=== PATIENT | male | born 1995 | race Caucasian/White ===

== ENCOUNTER 2016-10-29 18:33 | Emergency (ER) | payer BC ==
[~2016-10-29] VITALS: Ht 180.3 cm; Wt 81.2 kg
[2016-10-29 18:42] VITALS: TEMP 36.8; Ht 180.3 cm; Wt 81.2 kg
[2016-10-29] MEDS ORDERED: SODIUM CHLORIDE 0.9% 1000ML 1,000 ML IV STA (19:14)
[2016-10-29] MEDS ORDERED: PROCHLORPERAZINE 5 MG/ML 2 ML VIAL IV STA (19:14)
[2016-10-29] MEDS ORDERED: DiphenhydrAMINE HCL 50 MG/ML VIAL IV STA (19:14)
[2016-10-29] MEDS ORDERED: IBUP-1050 PO (19:28)
[2016-10-29] MEDS ORDERED: PSEU30TA20 PO (19:29)
[2016-10-29 19:54] LABS: BASO % 0.5 %; BASO ABS # 0.03 K/uL (0-0.2); COMPLETE YES; EOS % 2.7 %; HEMATOCRIT 39.1 % (42-52); IG% 0.2 %; LYMPH % 25.4 %; LYMPH ABS # 1.42 K/uL (1.2-3.4); MEAN CELL VOLUME 84.4 fL (80-100); MEAN CORPUSCULAR HGB CONC 35.5 g/dl (32-36); MEAN PLATELET VOLUME 10.4 fL (7.4-10.4); MONO % 14.5 %; NEUT % 56.7 %; PLATELET COUNT 192 K/uL (130-400); RED BLOOD COUNT 4.63 M/uL (4.7-6.1); WHITE BLOOD COUNT 5.59 K/uL (4.8-10.8)
[2016-10-29 20:01] LABS: INR 1.1 (0.9-1.1); PARTIAL THROMBOPLASTIN RATIO 1.2; PROTHROMBIN TIME (PATIENT) 11.3 SECONDS (9.0-12.0)
--- NOTE | 2016-10-29 20:06 | DIAGNOSTIC IMAGING REPORT ---
HEAD CT NONCONTRAST CT DOSE: 580.48 mGy.cm HISTORY: right facial numbness/right DEY eval for bleed/cva TECHNIQUE: Multiaxial CT images of the head were performed without the use of intravenous contrast. Automated exposure control was utilized for this study. Comparison: Head CT Findings: The paranasal sinuses and mastoid air cells are clear. The calvarium and skull base are intact. The ventricles and sulci are within normal limits. There is no mass, hematoma, midline shift, or acute infarct. Impression: No acute intracranial abnormality. Electronically signed by: Edward Mora M.D. 10/29/2016 8:04 PM Dictated Date/Time: 10/29/2016 8:00 PM
[2016-10-29 20:18] LABS: BUN/CREATININE RATIO 13.6 (10-20); CALCIUM 8.6 mg/dl (8.5-10.1); POTASSIUM 3.8 mmol/L (3.5-5.1)
[2016-10-29 20:28] LABS: THYROID STIMULATING HORMONE 0.663 uIu/ml (0.300-4.500)
[2016-10-29 20:59] LABS: LYME DISEASE AB IGG NEG (NEG); LYME DISEASE AB IGM NEG (NEG)
[2016-10-29 21:04] VITALS: BP 139/64; PULSE 60; O2SAT 98
--- NOTE | 2016-10-30 00:54 | EMERGENCY ROOM VISIT NOTE ---
History Report prepared by Phu: Mary Morales Under the Supervision of: Dr. Rick Huerta M.D. First contact with patient: 18:56 Chief Complaint: ILLNESS Stated Complaint: HEAD ISSUE,DIZZY,FACIAL NUMBNESS History of Present Illness The patient is a 21 year old male who presents to the Emergency Room with complaints of worsening headache and facial numbness which has been ongoing for up to a year. The patient reports that he is "not feeling right today". He admits to drinking alcohol last night and estimates that he had about 8 drinks. He did feel hungover this morning. He reports that he took an Ibuprofen at 1200 and started feeling "weird" about 1 hour later. He states that he is experiencing a headache on the right side of his head along with facial numbness on the right side of his lower face. He states that he has also been feeling dizzy, off balance, and has been experiencing some slowness in his thinking. The patient states that his headache today feels like the same headache that he has had for the past year. He also states that he has had this numbness to his lower face for the past year as well. He also states that today he has been smelling blood. He denies epistaxis. He is also feeling nauseous, but believes that this might be due to his drinking last night. He states that he regularly gets MRIs every 6 months. He reports that the last MRI was normal and it was performed when he was having his headaches and numbness, although he never mentioned these symptoms to his doctor. He denies any vomiting , diarrhea, abdominal pain, fever, sinus problems, epistaxis, recent tick bites , rashes, and numbness or weakness in his arms or legs. He reports that there is no family history of migraine headaches. The patient rates his current pain as a 3/10. Source of History: patient Onset: [employer] Position: head Symptom Intensity: 3/10 Quality: other (throbbing) Timing: constant Modifying Factors (Worsening): other (alcohol last night) Associated Symptoms: + nausea, + numbness (right facial), No abdominal pain , No diarrhea, No fevers, No rash, No vomiting Note: Pt notes dizziness, feeling off-balance, and problems with speech. Pt also denies sinus problems, epistaxis, and recent tick bites. Review of Systems See HPI for pertinent positives & negatives. A total of 10 systems reviewed and were otherwise negative. Past Medical & Surgical Medical Problems: (1) Cyst of brain (2) Hydrocephalus Surgical Problems: (1) History of tonsillectomy and adenoidectomy (2) ventriculostomy Family History Diabetes mellitus Kidney disease Kidney stones Social History Smoking Status: Current Some Day Smoker Alcohol Use: occasionally Marital Status: single Housing Status: lives with roommate Occupation Status: [employer] student Current/Historical Medications Scheduled Ibuprofen (Advil), 200-600 MG PO Q4H Pseudoephedrine (Sudafed), 30 MG PO DIRECTED Allergies Coded Allergies: Amoxicillin (Verified Allergy, Unknown, Rash, 10/29/16) Clavulanic Acid (Unverified Allergy, Unknown, RASH, 10/29/16) Physical Exam Vital Signs Date Time Temp Pulse Resp B/P Pulse Ox O2 Delivery O2 Flow Rate FiO2 10/29/16 21:04 60 20 139/64 98 Room Air 10/29/16 20:04 90 16 153/72 74 158/70 73 147/80 10/29/16 18:42 36.8 67 18 168/102 99 Room Air Physical Exam Constitutional: Vital signs reviewed. Eyes: Pupils are equal round reactive to light. Conjunctiva are noninjected. No papilledema bilaterally. ENT: Pharynx is clear without erythema or exudate. Mucous membranes are moist. Neck supple without meningeal signs. Respiratory: Clear to auscultation bilaterally. Breath sounds are equal bilaterally. Cardiovascular: Regular rate and rhythm. No rubs or gallops. GI: Soft, nondistended and nontender. Bowel sounds are present. Musculoskeletal: No peripheral edema. Integumentary: No cyanosis. Neurological: The patient is awake and alert. Cranial nerves II-XII are intact , except slight subjective diminished sensation to the right V3. Motor is 5 out of 5 all extremities. Sensation is intact to light touch all extremities. Normal speech. Normal gait. No pronator drift. No dysdiadochokinesis. No limb ataxia. Psychiatric: Slightly anxious appearing. Medical Decision & Procedures ER Provider Diagnostic Interpretation: Radiology results as stated below per my review and the radiologist's interpretation: HEAD CT NONCONTRAST CT DOSE: 580.48 mGy.cm HISTORY: right facial numbness/right DEY eval for bleed/cva TECHNIQUE: Multiaxial CT images of the head were performed without the use of intravenous contrast. Automated exposure control was utilized for this study. Comparison: Head CT Findings: The paranasal sinuses and mastoid air cells are clear. The calvarium and skull base are intact. The ventricles and sulci are within normal limits. There is no mass, hematoma, midline shift, or acute infarct. Impression: No acute intracranial abnormality. Electronically signed by: Edward Mora M.D. 10/29/2016 8:04 PM Laboratory Results 10/29/16 19:40 Red Blood Count 4.63, Mean Corpuscular Volume 84.4, Mean Corpuscular Hemoglobin 30.0, Mean Corpuscular Hemoglobin Concent 35.5, Mean Platelet Volume 10.4, Neutrophils (%) (Auto) 56.7, Lymphocytes (%) (Auto) 25.4, Monocytes (%) (Auto) 14.5, Eosinophils (%) (Auto) 2.7, Basophils (%) (Auto) 0.5, Neutrophils # (Auto ) 3.17, Lymphocytes # (Auto) 1.42, Monocytes # (Auto) 0.81, Eosinophils # (Auto ) 0.15, Basophils # (Auto) 0.03 10/29/16 19:40 Test 10/29/16 19:40 White Blood Count 5.59 K/uL (4.8-10.8) Red Blood Count 4.63 M/uL (4.7-6.1) Hemoglobin 13.9 g/dL (14.0-18.0) Hematocrit 39.1 % (42-52) Mean Corpuscular Volume 84.4 fL (80-100) Mean Corpuscular Hemoglobin 30.0 pg (25-34) Mean Corpuscular Hemoglobin Concent 35.5 g/dl (32-36) Platelet Count 192 K/uL (130-400) Mean Platelet Volume 10.4 fL (7.4-10.4) Neutrophils (%) (Auto) 56.7 % Lymphocytes (%) (Auto) 25.4 % Monocytes (%) (Auto) 14.5 % Eosinophils (%) (Auto) 2.7 % Basophils (%) (Auto) 0.5 % Neutrophils # (Auto) 3.17 K/uL (1.4-6.5) Lymphocytes # (Auto) 1.42 K/uL (1.2-3.4) Monocytes # (Auto) 0.81 K/uL (0.11-0.59) Eosinophils # (Auto) 0.15 K/uL (0-0.5) Basophils # (Auto) 0.03 K/uL (0-0.2) RDW Standard Deviation 39.3 fL (36.4-46.3) RDW Coefficient of Variation 12.9 % (11.5-14.5) Immature Granulocyte % (Auto) 0.2 % Immature Granulocyte # (Auto) 0.01 K/uL (0.00-0.02) Prothrombin Time 11.3 SECONDS (9.0-12.0) Prothromb Time International Ratio 1.1 (0.9-1.1) Activated Partial Thromboplast Time 31.8 SECONDS (21.0-31.0) Partial Thromboplastin Ratio 1.2 Anion Gap 9.0 mmol/L (3-11) Est Creatinine Clear Calc Drug Dose 124.4 ml/min Estimated GFR () 124.1 Estimated GFR (Non- 107.1 BUN/Creatinine Ratio 13.6 (10-20) Calcium Level 8.6 mg/dl (8.5-10.1) Total Bilirubin 0.4 mg/dl (0.2-1) Direct Bilirubin 0.2 mg/dl (0-0.2) Aspartate Amino Transf (AST/SGOT) 19 U/L (15-37) Alanine Aminotransferase (ALT/SGPT) 27 U/L (12-78) Alkaline Phosphatase 70 U/L (45-117) Total Protein 7.4 gm/dl (6.4-8.2) Albumin 4.0 gm/dl (3.4-5.0) Lipase 113 U/L (73-393) Thyroid Stimulating Hormone (TSH) 0.663 uIu/ml (0.300-4.500) Free Thyroxine 1.07 ng/dl (0.80-1.60) Lyme Disease IgG Antibody NEG (NEG) Lyme Disease IgM Antibody NEG (NEG) Laboratory results as reviewed by me. Medications Administered Medications (Trade) Dose Ordered Sig/Nate Route Start Time Stop Time Status Last Admin Dose Admin Sodium Chloride (Nss 1000ml) 1,000 ml @ 999 mls/hr Q1H1M STAT IV 10/29/16 19:14 10/29/16 20:14 DC 10/29/16 19:42 999 MLS/HR Prochlorperazine Edisylate (Compazine Inj) 10 mg NOW STAT IV 10/29/16 19:14 10/29/16 19:17 DC 10/29/16 19:43 10 MG Diphenhydramine HCl (Benadryl Inj) 50 mg NOW STAT IV 10/29/16 19:14 10/29/16 19:17 DC 10/29/16 19:42 50 MG ED Course 1904: The patient was evaluated in room B9. A complete history and physical exam was performed. 1913: NSS 1000 ml @ 999 mls/hr, Compazine Inj 10 mg IV, Benadryl Inj 50 mg IV. 2029: I reevaluated the patient. His headache is better and the numbness is gone. 2101: I reevaluated the patient. He is now asymptomatic. He will follow up with neurology. I discussed his results and discharge instructions with him and he verbalized complete understanding and agreement. Medical Decision This is a 21-year-old male who presents with feeling headache and facial numbness which she has had intermittently for about a year. Differential diagnosis includes migraine headache, stress headache, intracranial mass, intracranial hemorrhage, hangover. I did perform a limited focused review of portions of the patient's old chart on the electronic medical record. The patient has had no recent pertinent visits to this hospital. I did evaluate the patient as noted above. He is neurologically intact other than having some diminished sensation on the right lower face. He has had these symptoms intermittently for over a year. He did have a MRI of his brain last summer and he reports that was normal. IV access was established. I did treat the patient with normal saline IV. He was also given Compazine and Benadryl IV. I did order and review the patient's blood work as noted in the electronic medical record. His labs are unremarkable other than mild anemia. Lyme testing is negative. I did order a CT of the head. I did review the images myself as well as the radiology report as described above. There is no evidence of mass, bleed or CVA. I did reassess the patient. He is feeling better. His headache is improved and he has no numbness to his face. I did discuss the test results with the patient. I did recommend he follow up for further evaluation by neurology. He was referred to Dr. Prasad. Impression Primary Impression: Headache Additional Impression: Right facial numbness Scribe Attestation The scribe's documentation has been prepared under my direct and personally reviewed by me in its entirety. I confirm that the note above accurately reflects all work, treatment, procedures, and medical decision making performed by me. Departure Information Dispostion Home / Self-Care Referrals [facility] (PCP) Toni Prasad M.D. Forms HOME CARE DOCUMENTATION FORM, IMPORTANT VISIT INFORMATION, WORK / SCHOOL INSTRUCTIONS Patient Instructions Headache Pain, My [facility] Additional Instructions You have been examined and treated today on an emergency basis only. This is not a substitute for, or an effort to provide, complete comprehensive medical care. It is impossible to recognize and treat all injuries or illnesses in a single emergency department visit. It is therefore important that you follow up closely with [facility] and Dr. Prasad of neurology. Call as soon as possible for an appointment. Return for worsening symptoms or if you develop fever, numbness or weakness on one side of your body, difficulties with your speech or walking, or any other concerning symptoms. Problem Qualifiers
== END 2016-10-29 21:22 | disposition home or self-care (01) ==
LOC: C.EDB 18:34
DX: R51 Headache (principal); R20.0 Anesthesia of skin; R42 Dizziness and giddiness; R11.0 Nausea; Z87.898 Personal history of other specified conditions; Z88.1 Allergy status to other antibiotic agents; F17.200 Nicotine dependence, unspecified, uncomplicated; Z83.3 Family history of diabetes mellitus; Z84.1 Family history of disorders of kidney and ureter

== ENCOUNTER → 2016-11-04 | Outpatient (CLI) | payer BC ==
[~2016-11-04] MED LIST: GADAVIST IV PRN; IBUP-1050 PO; PSEU30TA20 PO
--- NOTE | 2016-11-04 07:41 | DIAGNOSTIC IMAGING REPORT ---
MRI OF THE BRAIN WITHOUT AND WITH IV CONTRAST CLINICAL HISTORY: HEADACHES mental status change COMPARISON STUDY: No previous studies for comparison. TECHNIQUE: Utilizing a 1.5 Ayesha magnet and dedicated coil, multiplanar, multiecho imaging of the brain was performed pre and postcontrast administration. IV administration of 8 mL of Gadavist contrast was uneventful. FINDINGS: No evidence for disc acute ischemic process based on diffusion-weighted images. Signal characteristics of the cerebellar as well as cerebral hemispheres are unremarkable. Single small focus of increased signal in the superior to the right anterior frontal lobe. No additional foci are present. No significant postcontrast enhancement. Sella and parasellar regions are unremarkable. IMPRESSION: Normal study. Electronically signed by: Speedy Erwin M.D. 11/04/2016 7:40 AM Dictated Date/Time: 11/04/2016 7:33 AM
== END | disposition home or self-care (01) ==
LOC: C.MRI 06:31
PROVIDERS: ATTEND Family Medicine
DX: R51 Headache (principal)